=== PATIENT | female | born 1990 ===

== ENCOUNTER 2024-03-12 09:53 | Emergency (ER) | payer OTHER ==
[~2024-03-12] VITALS: Ht 154.9 cm; Wt 94.0 kg
[2024-03-12 10:29] VITALS: BP 121/78; PULSE 83; RESP 16; TEMP 98.9; O2SAT 100
[2024-03-12] MEDS: methylPREDNISolone SOD SUCC 125 MG/2 ML VL IM ONE (11:13)
[2024-03-12 11:50] LABS: Basophils # (auto) 0 10 ^3/uL (0-0.2); Basophils % (auto) 0.4 % (0.0-2.0); Eosinophils # (auto) 0.1 10 ^3/uL (0-0.8); Hematocrit 35.4 % (36.0-46.0); Hemoglobin 11.2 g/dL (12.2-16.2); Lymphocytes % (auto) 23.4 % (10.0-50.0); Mean Corpuscular Hemoglobin 23.6 pg (28.0-32.0); Mean Corpuscular Hgb Conc. 31.8 g/dL (32.0-36.0); Mean Corpuscular Volume 74.1 fL (80.0-100.0); Monocytes # (auto) 0.3 10 ^3/uL (0-1.3); Monocytes % (auto) 6.8 % (0.0-12.0); Neutrophils # (auto) 2.8 10 ^3/uL (1.6-8.6); Neutrophils % (auto) 67.4 % (37.0-80.0); Nucleated Red Blood Cells % 0.1 %; Red Blood Cells 4.77 10^6/uL (4.0-5.20); Red Cell Distribution Width 17.8 % (11.8-14.3); White Blood Cell 4.2 10^3/uL (4.4-10.8)
[2024-03-12 12:00] LABS: Alanine Aminotransferase 35 U/L (7-40); Alkaline Phosphatase 87 U/L (46-116); Anion Gap 8 (5-15); Aspartate Aminotransferase 22 U/L (13-40); BUN/Creatinine Ratio 8.3 (10.0-20.0); Bilirubin, Total 0.3 mg/dL (0.2-1.0); Blood Urea Nitrogen 8 mg/dL (9-23); Calcium 9.8 mg/dL (8.5-10.1); Carbon Dioxide 24 mmol/L (20-30); Chloride 106 mmol/L (98-107); Glucose 91 mg/dL (74-106); Potassium 3.8 mmol/L (3.5-5.1); Sodium 138 mmol/L (136-145); Total Protein 7.8 g/dL (5.7-8.2)
[2024-03-12] MEDS: diphenhdrAMINE HCL 25 MG CAP PO ONE (12:46)
[2024-03-14 08:06] LABS: RPR Non Reactive (Non Reactive)
== END 2024-03-12 13:12 | disposition home or self-care (01) ==
LOC: ER 09:53
DX: B09 Unspecified viral infection characterized by skin and mucous membrane lesions (principal); B20 Human immunodeficiency virus [HIV] disease
CPT/HCPCS: 36415; 80053; 85025; 86592; 86703; 96372; 99283; J2919